=== PATIENT | male | born 1970 | race Caucasian/White ===

== ENCOUNTER 2022-05-24 17:39 | Inpatient (IN) | payer OTHER ==
[~2022-05-24] VITALS: Ht 185.4 cm; Wt 93.5 kg
[2022-05-24] MEDS ORDERED: METF-1211 PO (21:30)
[2022-05-24] MEDS ORDERED: INSLAN SQ (21:30)
[2022-05-24] MEDS ORDERED: GABA-1181 PO (21:31)
[2022-05-24] MEDS ORDERED: CefTRIAXone SODIUM 2 GM in DEXTROSE 5%-WATER 50 ML IV ONE (22:15)
[2022-05-24] MEDS ORDERED: VANCOMYCIN 1GM/WATER(PEG/NADA) 200 ML IV ONE (22:15)
[2022-05-24] MEDS ORDERED: KETOROLAC TROMETHAMINE 30 MG/ML VIAL IVP ONE (22:15)
[2022-05-24 23:11] LABS: BASOPHILS % (AUTO) 0.8 % (0.0-2.0); EOSINOPHILS % (AUTO) 1.3 % (1.0-6.0); HEMATOCRIT 41.6 % (41-53); HEMOGLOBIN 14.4 g/dL (13.5-17.5); LYMPHOCYTES # (AUTO) 3.1 K/uL (1.0-4.8); LYMPHOCYTES % (AUTO) 54.2 % (22.0-44.0); MEAN CORPUSCULAR HEMOGLOBIN 29.4 pg (26.0-34.0); MEAN CORPUSCULAR HGB CONC 34.6 G/dL (31.0-37.0); MEAN CORPUSCULAR VOLUME 85 fL (80-100); MONOCYTES # (AUTO) 0.4 K/uL (0.1-1.0); MONOCYTES % (AUTO) 7.1 % (2.0-9.0); NEUTROPHILS # (AUTO) 2.1 K/uL (1.8-7.7); NEUTROPHILS % (AUTO) 36.6 % (40.0-70.0); PLATELET COUNT (AUTO) 184 K/uL (150-450); RED CELL DISTRIBUTION WIDTH 13.4 % (11.5-14.5)
[2022-05-24 23:21] LABS: ANION GAP 0 mmol/L (8-16); CARBON DIOXIDE 29 mmol/L (22-29); CHLORIDE 103 mmol/L (98-107); CREATININE 0.92 mg/dL (0.60-1.30); GLUCOSE,RANDOM 78 mg/dL (70-110); POTASSIUM 3.5 mmol/L (3.5-5.1); SODIUM SERUM 132 mmol/L (136-145); UREA NITROGEN, BLOOD 17 mg/dL (7-18)
[2022-05-24 23:22] LABS: GLOMERULAR FILTR. RATE CALC > 60 mL/min (>60)
[2022-05-24 23:26] LABS: ALANINE AMINOTRANSFERASE 19 U/L (12-78); ALBUMIN 3.7 g/dL (3.4-5.0); ALKALINE PHOSPHATASE 46 U/L (46-116); ASPARTATE AMINOTRANSFERASE 20 U/L (15-37); BILIRUBIN,TOTAL 0.3 mg/dL (0.1-1.0)
[2022-05-24 23:34] LABS: LACTIC ACID 1.2 mmol/L (0.4-2.0)
[2022-05-24] MEDS ORDERED: ONDANSETRON HCL 4 MG/2 ML VIAL IVP PRN (23:45)
[2022-05-24 23:49] LABS: COVID AG,FIA SOURCE NASAL SWAB
[2022-05-24] MEDS: HEPARIN SODIUM,PORCINE 5,000 UNITS/ML VIAL SQ SCH (23:54)
[2022-05-25] MEDS ORDERED: DEXTROSE 50%-WATER 25 GM/50 ML SYRINGE IVP PRN (00:30)
[2022-05-25 01:11] LABS: C-REACTIVE PROTEIN QUANT < 0.05 mg/dL (0.00-0.30)
[2022-05-25 03:05] VITALS: BP 146/91
[2022-05-25] MEDS ORDERED: SODIUM CHLORIDE 0.9% 250 ML IV ONE (04:51)
[2022-05-25] MEDS: PIPERACILLIN/TAZO 3.375 GM/D5W 50 ML IV SCH ×4 (05:58→23:53)
[2022-05-25 06:46] LABS: GLUCOMETER DEV NAME(LOC) 6N.2B; GLUCOSE,POINT OF CARE 71 MG/DL (70-110)
[2022-05-25 07:33] VITALS: BP 143/87
[2022-05-25] MEDS: HEPARIN SODIUM,PORCINE 5,000 UNITS/ML VIAL SQ SCH ×3 (09:08→23:58)
[2022-05-25] MEDS: GABAPENTIN 300 MG CAPSULE PO SCH (09:08)
[2022-05-25] MEDS: ASPIRIN 81 MG CHEWABLE TABLET PO SCH (09:09)
[2022-05-25] MEDS: ACETAMINOPHEN 325 MG TABLET PO PRN ×2 (13:14→20:35)
[2022-05-25 15:16] LABS: GLUCOMETER DEV NAME(LOC) 6N.2B; GLUCOSE,POINT OF CARE 122 MG/DL (70-110)
[2022-05-25 15:40] VITALS: BP_SYST 143; BP_SYST 156; BP_DIAS 86; BP_DIAS 87
[2022-05-25] MEDS: INSULIN LISPRO 100 UNITS/ML SQ PRN ×2 (17:49→20:27)
[2022-05-25 20:18] VITALS: BP 129/75
[2022-05-25] MEDS: ATORVASTATIN CALCIUM 20 MG TABLET PO SCH (20:27)
[2022-05-25 21:46] LABS: GLUCOMETER DEV NAME(LOC) 6N.1; GLUCOSE,POINT OF CARE 181 MG/DL (70-110)
[2022-05-25 21:47] LABS: GLUCOMETER DEV NAME(LOC) 6N.1; GLUCOSE,POINT OF CARE 180 MG/DL (70-110)
[2022-05-26 04:51] VITALS: BP 140/85
[2022-05-26] MEDS: PIPERACILLIN/TAZO 3.375 GM/D5W 50 ML IV SCH ×4 (06:00→23:44)
[2022-05-26] MEDS: INSULIN LISPRO 100 UNITS/ML SQ PRN ×4 (06:05→20:19)
[2022-05-26 08:03] VITALS: BP 153/81
[2022-05-26] MEDS: GABAPENTIN 300 MG CAPSULE PO SCH (08:43)
[2022-05-26] MEDS: MULTIVITAMINS WITH MINERALS, THERAPEUTIC TABLET PO SCH (08:43)
[2022-05-26] MEDS: HEPARIN SODIUM,PORCINE 5,000 UNITS/ML VIAL SQ SCH ×3 (08:43→23:44)
[2022-05-26] MEDS: ASPIRIN 81 MG CHEWABLE TABLET PO SCH (08:43)
[2022-05-26] MEDS: ACETAMINOPHEN 325 MG TABLET PO PRN ×3 (08:50→20:41)
[2022-05-26] MEDS ORDERED: SODIUM CHLORIDE 0.9% 500 ML IV ONE (12:07)
[2022-05-26 15:21] VITALS: BP 134/73
[2022-05-26 15:31] LABS: GLUCOMETER DEV NAME(LOC) 6N.1; GLUCOSE,POINT OF CARE 146 MG/DL (70-110)
[2022-05-26 15:31] LABS: GLUCOMETER DEV NAME(LOC) 6N.2B; GLUCOSE,POINT OF CARE 161 MG/DL (70-110)
[2022-05-26 19:28] VITALS: BP 126/80
[2022-05-26] MEDS: ATORVASTATIN CALCIUM 20 MG TABLET PO SCH (20:12)
[2022-05-26 22:51] LABS: GLUCOMETER DEV NAME(LOC) 6N.1; GLUCOSE,POINT OF CARE 185 MG/DL (70-110)
[2022-05-26 22:51] LABS: GLUCOMETER DEV NAME(LOC) 6N.2B; GLUCOSE,POINT OF CARE 262 MG/DL (70-110)
[2022-05-27 04:11] VITALS: BP 151/87
[2022-05-27] MEDS: PIPERACILLIN/TAZO 3.375 GM/D5W 50 ML IV SCH ×4 (06:12→23:17)
[2022-05-27] MEDS: INSULIN LISPRO 100 UNITS/ML SQ PRN ×4 (06:14→20:47)
[2022-05-27 07:06] LABS: GLUCOMETER DEV NAME(LOC) 6N.2B; GLUCOSE,POINT OF CARE 192 MG/DL (70-110)
[2022-05-27 08:00] VITALS: BP 136/85
[2022-05-27] MEDS: MULTIVITAMINS WITH MINERALS, THERAPEUTIC TABLET PO SCH (08:59)
[2022-05-27] MEDS: HEPARIN SODIUM,PORCINE 5,000 UNITS/ML VIAL SQ SCH ×3 (09:00→23:20)
[2022-05-27] MEDS: GABAPENTIN 300 MG CAPSULE PO SCH (09:00)
[2022-05-27] MEDS: ASPIRIN 81 MG CHEWABLE TABLET PO SCH (09:00)
[2022-05-27 13:47] LABS: GLUCOMETER DEV NAME(LOC) 6N.2B; GLUCOSE,POINT OF CARE 218 MG/DL (70-110)
[2022-05-27 15:13] VITALS: BP 120/76
[2022-05-27 20:06] LABS: GLUCOMETER DEV NAME(LOC) 6N.2B; GLUCOSE,POINT OF CARE 325 MG/DL (70-110)
[2022-05-27 20:10] VITALS: BP 130/81
[2022-05-27] MEDS: ATORVASTATIN CALCIUM 20 MG TABLET PO SCH (20:45)
[2022-05-27] MEDS: ACETAMINOPHEN 325 MG TABLET PO PRN (20:46)
[2022-05-27] MEDS ORDERED: ZOLPIDEM TARTRATE 10 MG TABLET PO ONE (23:30)
[2022-05-27 23:36] LABS: GLUCOMETER DEV NAME(LOC) 6N.1; GLUCOSE,POINT OF CARE 257 MG/DL (70-110)
[2022-05-28 04:40] VITALS: BP 127/85
[2022-05-28] MEDS: PIPERACILLIN/TAZO 3.375 GM/D5W 50 ML IV SCH ×2 (06:36→12:00)
[2022-05-28] MEDS: INSULIN LISPRO 100 UNITS/ML SQ PRN ×2 (06:44→12:08)
[2022-05-28 07:57] LABS: GLUCOMETER DEV NAME(LOC) 6N.2B; GLUCOSE,POINT OF CARE 202 MG/DL (70-110)
[2022-05-28 08:40] VITALS: BP 128/69
[2022-05-28] MEDS: MULTIVITAMINS WITH MINERALS, THERAPEUTIC TABLET PO SCH (08:41)
[2022-05-28] MEDS: ASPIRIN 81 MG CHEWABLE TABLET PO SCH (08:41)
[2022-05-28] MEDS: HEPARIN SODIUM,PORCINE 5,000 UNITS/ML VIAL SQ SCH ×2 (08:41→15:22)
[2022-05-28] MEDS: GABAPENTIN 300 MG CAPSULE PO SCH (08:41)
[2022-05-28] MEDS ORDERED: MetFORMIN HCL 500 MG ER TABLET PO ONE (10:45)
[2022-05-28] MEDS ORDERED: INSULIN GLARGINE,HUM.REC.ANLOG 100 UNITS/ML SQ ONE (10:45)
[2022-05-28] MEDS ORDERED: ASPI-1450 PO (12:30)
[2022-05-28] MEDS ORDERED: INSLAN SQ (12:31)
[2022-05-28] MEDS ORDERED: ATOR20TA86 PO (12:31)
[2022-05-28] MEDS ORDERED: MULT-1239 PO (12:32)
[2022-05-28] MEDS ORDERED: INSU100V SQ (12:32)
[2022-05-28 13:56] LABS: GLUCOMETER DEV NAME(LOC) 6N.1; GLUCOSE,POINT OF CARE 269 MG/DL (70-110)
[2022-05-28] MEDS ORDERED: MetFORMIN HCL 500 MG ER TABLET PO SCH (18:00)
[2022-05-28] MEDS ORDERED: INSULIN GLARGINE,HUM.REC.ANLOG 100 UNITS/ML SQ SCH (21:00)
[2022-05-29] MEDS ORDERED: INSULIN GLARGINE,HUM.REC.ANLOG 100 UNITS/ML SQ SCH (09:00)
== END 2022-05-28 16:02 | DRG 603 ==
LOC: EMS 17:40 → 6S 05-25 03:05
PROVIDERS: ADMIT Internal Medicine; ATTEND Internal Medicine
DX: L03.032 Cellulitis of left toe (principal); E87.1 Hypo-osmolality and hyponatremia; E11.42 Type 2 diabetes mellitus with diabetic polyneuropathy; E11.51 Type 2 diabetes mellitus with diabetic peripheral angiopathy without gangrene; E11.621 Type 2 diabetes mellitus with foot ulcer; I10 Essential (primary) hypertension; E11.65 Type 2 diabetes mellitus with hyperglycemia; Z20.822 Contact with and (suspected) exposure to COVID-19; L03.031 Cellulitis of right toe; Z89.412 Acquired absence of left great toe; Z89.422 Acquired absence of other left toe(s); Z79.899 Other long term (current) drug therapy; Z79.82 Long term (current) use of aspirin
CPT/HCPCS: 80053; 82962; 83605; 85025; 85651; 86140; 87040; 93925; 99285; J0696; J1644; J1815; J1885; J2543; J7040; J7050; J7060; Q9967